=== PATIENT | male | born 1950 | race Hispanic/Latino ===

== ENCOUNTER 2021-05-01 11:23 | Emergency (ER) | payer SELFPAY ==
[~2021-05-01] VITALS: Ht 170.2 cm; Wt 81.6 kg
[2021-05-01] MEDS ORDERED: CASIRIVIMAB/IMDEVIMAB 10 ML in SODIUM CHLORIDE 0.9% 100 ML IV ONE (12:00)
[2021-05-01 13:28] VITALS: BP 120/67
== END 2021-05-01 13:20 | disposition home or self-care (01) ==
LOC: ER 12:05
DX: R52 Pain, unspecified (principal); U07.1 COVID-19; I10 Essential (primary) hypertension
CPT/HCPCS: 99282